=== PATIENT | male | born 1980 | race Caucasian/White ===

== ENCOUNTER 2017-11-25 07:43 | Outpatient (CLI) | payer BC | END 2017-11-25 07:44 | disposition home or self-care (01) | LOC: BICULT 07:43 | PROVIDERS: ATTEND Family Medicine | DX: R10.9 Unspecified abdominal pain (principal) | CPT/HCPCS: 76700 ==

== ENCOUNTER 2019-01-10 20:31 | Emergency (ER) | payer BC ==
[2019-01-10] MEDS ORDERED: Adacel (T-DAP) 0.5 ML SYRINGE ONE (21:00)
--- NOTE | 2019-01-10 21:19 | CT ---
CT BRAIN NONCONTRAST: 01/10/19 HISTORY: 38-year-old male status post acute head trauma, resulting in lightheadedness, and nausea. FINDINGS: There is no midline shift or any other mass effect. There is no evidence of acute intracranial hemor rhage, large cortical infarct, obstructive hydrocephalus, or extraaxial fluid collection. The calvar ium is intact. There are skin velma at the left parietal scalp. IMPRESSION: 1. No acute intracranial findings. 2. Acute, traumatic laceration of left parietal scalp. jn [] POS: JIN
[2019-01-10] MEDS ORDERED: Ibuprofen 600 MG TAB ONE (21:23)
== END 2019-01-10 21:50 | disposition home or self-care (01) ==
LOC: SCSER 20:31
DX: S06.9X9A Unspecified intracranial injury with loss of consciousness of unspecified duration, initial encounter (principal); S01.01XA Laceration without foreign body of scalp, initial encounter; K21.9 Gastro-esophageal reflux disease without esophagitis; Z23 Encounter for immunization; W01.198A Fall on same level from slipping, tripping and stumbling with subsequent striking against other object, initial encounter; Y93.67 Activity, basketball
CPT/HCPCS: 12002; 70450; 90471; 90715